=== PATIENT | female | born 1990 | race Caucasian/White ===

== ENCOUNTER 2016-07-30 10:52 | Emergency (ER) | payer BC, OTHER ==
[2016-07-30 11:06] VITALS: TEMP 98; BMI 37.8
[2016-07-30] MEDS ORDERED: ONDANSETRON 4 MG/2 ML VIAL ONE (12:20)
[2016-07-30 13:31] LABS: BASOPHIL 1.3 % (0-2.0); EOSINOPHIL 0.7 % (0-4.5); MCH 31.6 pg (25.7-33.7); MCHC 33.4 g/dl (32.0-36.0); MEAN CELL VOLUME 94.7 fl (80-96); MEAN PLT VOLUME 9.3 fl (7.5-11.1); NEUTROPHILS 60.9 % (42.8-82.8); PLATELET COUNT 215 K/MM3 (134-434); RDW 14.6 % (11.6-15.6); WHITE BLOOD COUNT 8.6 K/mm3 (4.0-10.0)
--- NOTE | 2016-07-30 14:04 | PDOC ---
History of Present Illness - General History Source: Old Records Exam Limitations: No Limitations - History of Present Illness Initial Comments: 07/30/16 14:51 The patient is a 26-year-old female with a significant past medical history of mild mental retardation, cardiomyopathy/bradycardia (s/p pacemaker placed at [facility] in April 2014), bipolar disorder, schizophrenia, and seizure disorder, who presents to the ER with chest pain that began last night at 8PM. The patient describes her chest pain as constant, [id number], 5/10 in severity, and exacerbated with deep inspiration. She reports that she has not seen her Corporate Secretary since June. The patient denies any swelling in legs. The patient denies any pain in arm, jaw, neck, or back. <Suzy Lucas - Last Filed: 07/30/16 14:50> - General History Source: Patient Exam Limitations: No Limitations <Ana Paula Brito - Last Filed: 08/03/16 09:37> - General Chief Complaint: Chest Pain Stated Complaint: CHEST PAIN Time Seen by Provider: 07/30/16 12:07 Past History <Suzy Lucas - Last Filed: 07/30/16 14:50> - Past Medical History Cardiac Disorders: Yes Psychiatric Problems: Yes (bipolar,schizophrenia, takes meds) Suicide Attempt (Hx): No Seizures: Yes - Surgical History Cardiac Surgery: Yes (pacemaker) - Immunization History Immunization Up to Date: Yes - Psycho/Social/Smoking Cessation Hx Anxiety: Yes Suicidal Ideation: No Smoking Status: No Smoking History: Never smoked Have you smoked in the past 12 months: No Number of Cigarettes Smoked Daily: 0 Information on smoking cessation initiated: No Hx Alcohol Use: No Drug/Substance Use Hx: No Substance Use Type: None <Ana Paula Brito - Last Filed: 08/03/16 09:37> - Past Medical History Allergies/Adverse Reactions: Allergies Allergy/AdvReac Type Severity Reaction Status Date / Time No Known Allergies Allergy Verified 07/30/16 11:00 Home Medications: Ambulatory Orders Citalopram Hydrobromide [CeleXA] 20 mg PO HS 08/04/11 Aspirin [ASA -] 81 mg PO DAILY 10/07/14 Metoprolol Tartrate [Lopressor -] 25 mg PO BID 10/07/14 Olanzapine 2.5 mg PO HS 10/07/14 Topiramate [Topamax] 50 mg PO BID #60 tablet 10/07/14 Review of Systems - Review of Systems Able to Perform ROS?: Yes Comments:: 07/30/16 14:51 GENERAL/CONSTITUTIONAL: No: fever, chills, weakness, loss of appetite. HEAD, EYES, EARS, NOSE AND THROAT: No: change in vision, ear pain, discharge, sore throat, throat swelling. CARDIOVASCULAR: No: lightheadedness, palpitations, syncope. (+)Chest pain RESPIRATORY: No: cough, shortness of breath, wheezing, hemoptysis, stridor. GASTROINTESTINAL: No: nausea, vomiting, abdominal cramping, diarrhea, rectal bleeding, constipation. GENITOURINARY: No: dysuria, hematuria, frequency, urgency, flank pain. MUSCULOSKELETAL: No: back pain, neck pain, joint pain, muscle swelling or pain SKIN AND BREASTS: No: lesions, pallor, rash or easy bruising. NEUROLOGIC: No: headache, vertigo, paresthesias, weakness ENDOCRINE: No: unexplained weight gain or loss HEMATOLOGIC/LYMPHATIC: No: anemia, easy bleeding, swelling nodes <Suzy Lucas - Last Filed: 07/30/16 14:50> *Physical Exam - Vital Signs Last Vital Signs Temp Pulse Resp BP Pulse Ox 98.0 F 95 H 18 123/81 100 07/30/16 11:01 07/30/16 11:01 07/30/16 11:01 07/30/16 11:01 07/30/16 11:01 - Physical Exam Comments: 07/30/16 14:52 GENERAL: The patient is in no acute distress. HEAD: Normal with no signs of trauma. EYES: PERRLA, EOMI, sclera anicteric, conjunctiva clear. ENT: Ears normal, nares patent, oropharynx clear without exudates. Moist mucous membranes. NECK: Normal range of motion, supple without lymphadenopathy, JVD, or masses. LUNGS: Breath sounds equal, clear to auscultation bilaterally. No wheezes, and no crackles. HEART:Regular rate and rhythm, normal S1 and S2 without murmur, rub or gallop. ABDOMEN: Soft, nontender, normoactive bowel sounds. No guarding, no rebound. EXTREMITIES: Normal range of motion, no edema. No clubbing or cyanosis. No erythema, or tenderness. NEUROLOGICAL: Cranial nerves II through XII grossly intact. Normal speech. No focal neurological deficits. MUSCULOSKELETAL: Back non-tender to palpation, no CVA tenderness SKIN: Warm, Dry, normal turgor, no rashes or lesions noted. <Suzy Lucas - Last Filed: 07/30/16 14:50> - Vital Signs Last Vital Signs Temp Pulse Resp BP Pulse Ox 98.0 F 95 H 18 123/81 100 07/30/16 11:01 07/30/16 11:01 07/30/16 11:01 07/30/16 11:01 07/30/16 11:01 <Ana Paula Brito - Last Filed: 08/03/16 09:37> Heart Score/ECG Review #1 ECG reviewed & interpreted by me at: 14:49 General ECG Interpretation: Sinus Rhythm, Normal Rate, Normal Intervals, No acute ischemic changes <Ana Paula Brito - Last Filed: 08/03/16 09:37> ED Treatment Course - LABORATORY CBC & Chemistry Diagram: 07/30/16 12:55 07/30/16 12:55 - ADDITIONAL ORDERS Additional order review: Laboratory Results 07/30/16 07/30/16 13:18 12:55 Sodium 140 Potassium 4.4 Chloride 108 H Carbon Dioxide 22 Anion Gap 10 BUN 7 D Creatinine 0.6 Creat Clearance w eGFR > 60 Random Glucose 88 Calcium 8.4 L Total Bilirubin 0.4 AST 34 D ALT 25 Alkaline Phosphatase 85 Creatine Kinase 95 Troponin I < 0.02 Total Protein 7.2 Albumin 3.3 L Serum , Qual Negative 07/30/16 12:55 RBC 4.20 MCV 94.7 MCHC 33.4 RDW 14.6 MPV 9.3 Neutrophils % 60.9 Lymphocytes % 27.1 D Monocytes % 10.0 Eosinophils % 0.7 Basophils % 1.3 <Suzy Lucas - Last Filed: 07/30/16 14:50> - LABORATORY CBC & Chemistry Diagram: 07/30/16 12:55 07/30/16 12:55 - ADDITIONAL ORDERS Additional order review: Laboratory Results 07/30/16 13:18 Serum , Qual Negative 07/30/16 12:55 RBC 4.20 MCV 94.7 MCHC 33.4 RDW 14.6 MPV 9.3 Neutrophils % 60.9 Lymphocytes % 27.1 D Monocytes % 10.0 Eosinophils % 0.7 Basophils % 1.3 - RADIOLOGY Radiology Studies Ordered: Category Date Time Status CHEST X-RAY PORTABLE* [RAD] Stat Radiology 07/30/16 12:35 Ordered <Ana Paula Brito - Last Filed: 08/03/16 09:37> Medical Decision Making - Medical Decision Making 07/30/16 14:04 A portion of this note was documented by scribe services under my direction. I have reviewed the details of the note, within reason, and agree with the documentation with the following case summary and management plan written by me. Nursing documentation reviewed and incorporated into medical decision making 07/30/16 14:34 this is a 26 yo F with a history of syncope found to have sinus pauses, s/p pacemaker (placed 2013) (Pt also has a history of a brief episode of Afib, not anticoagulated, matilde 2 Vasc score 2) Pt presents to the ER with a complaint of left chest pain No cough No shortness of breath no fevers or chills No exertional symptoms Pt has not followed up with her fork lift truck operator as she was told to Will do basic labs will do EKG 07/30/16 14:45 Laboratory Tests 07/30/16 07/30/16 12:55 12:55 WBC 8.6 Hgb 13.3 Hct 39.8 Plt Count 215 Neutrophils % 60.9 Lymphocytes % 27.1 D Sodium 140 Potassium 4.4 Chloride 108 H Carbon Dioxide 22 Anion Gap 10 BUN 7 D Creatinine 0.6 Random Glucose 88 Creatine Kinase 95 Troponin I < 0.[address] Dominique He agrees with discharge to home I have contacted pt mother She is requesting Medicaid cab clinical impression: chest pain <Ana Paula Brito - Last Filed: 08/03/16 09:37> *DC/Admit/Observation/Transfer - Attestations Scribe Attestion: 07/30/16 14:52 Documentation prepared by Suzy Lucas, acting as medical field representative for Ana Paula Brito MD. <Suzy Lucas - Last Filed: 07/30/16 14:50> - Discharge Dispostion Admit: No <Ana Paula Brito - Last Filed: 08/03/16 09:37> Diagnosis at time of Disposition: Chest pain Qualifiers: Chest pain type: unspecified Qualified Code(s): R07.9 - Chest pain, unspecified - Discharge Dispostion Disposition: HOME Condition at time of disposition: Improved - Referrals Referrals: Clif Gomes MD [Primary Care Provider] - - Patient Instructions Printed Discharge Instructions: DI for Atypical Chest Pain
[2016-07-30 14:05] LABS: ALBUMIN 3.3 g/dl (3.4-5.0); ANION GAP 10 (8-16); CALCIUM 8.4 mg/dL (8.5-10.1); CO2 22 mmol/L (21-32); CREATININE 0.6 mg/dL (0.55-1.02); GLUCOSE,RANDOM 88 mg/dL (74-106); SGPT/ALT 25 U/L (12-78)
[2016-07-30 14:09] LABS: ALK PHOS 85 U/L (45-117); BILIRUBIN,TOTAL 0.4 mg/dL (0.2-1.0); TOT PROT 7.2 g/dl (6.4-8.2); TROPONIN I < 0.02 ng/ml (0.00-0.05)
[2016-07-30 14:10] LABS: SGOT/AST 34 U/L (15-37)
[2016-07-30 14:54] VITALS: BP 138/88; PULSE 80
--- NOTE | 2016-07-31 16:30 | EKG ---
Test Reason : Blood Pressure : / mmHG Vent. Rate : 095 BPM Atrial Rate : 095 BPM P-R Int : 120 ms QRS Dur : 076 ms QT Int : 350 ms P-R-T Axes : 043 039 032 degrees QTc Int : 439 ms NORMAL SINUS RHYTHM NORMAL ECG WHEN COMPARED WITH ECG OF 12-JUN-2016 11:44, NO SIGNIFICANT CHANGE WAS FOUND Confirmed by MAXINE DINH MD ([id number]) on 07/31/2016 4:30:37 PM Referred By: Confirmed By:MAXINE DINH MD
== END 2016-07-30 15:19 | disposition home or self-care (01) ==
LOC: JER 10:52
DX: R07.9 Chest pain, unspecified (principal); F79 Unspecified intellectual disabilities; F31.9 Bipolar disorder, unspecified; I42.9 Cardiomyopathy, unspecified; R00.1 Bradycardia, unspecified; Z95.0 Presence of cardiac pacemaker; Z79.82 Long term (current) use of aspirin
CPT/HCPCS: 36415; 71010-TC; 80053; 82550; 84484; 84703; 85025; 93005; 93010; 99284-25

== ENCOUNTER 2016-10-08 13:40 | Emergency (ER) | payer BC, OTHER ==
[2016-10-08 13:48] VITALS: BP 140/55; PULSE 105; TEMP 98.3; BMI 27.1
[2016-10-08] MEDS ORDERED: IBUPROFEN 400 MG TABLET (FP) PO ONE ×2 (14:28→14:31)
[2016-10-08] MEDS ORDERED: AMOXICILLIN 500 MG CAPSULE (FP) PO ONE (14:28)
[2016-10-08] MEDS ORDERED: AMOXICILLIN 250 MG CAPSULE ONE (14:31)
--- NOTE | 2016-10-08 14:31 | PDOC ---
History of Present Illness - General Chief Complaint: Toothache Stated Complaint: toothache Time Seen by Provider: 10/08/16 14:18 History Source: Patient Exam Limitations: No Limitations - History of Present Illness Initial Comments: 10/08/16 14:32 Patient well-known to this emergency department for multiple admissions primarily for psychiatric purposes, is here now complaining of right lower molar pain. Has known dental disease, has not sought evaluation by dentist, denies fever but states is painful. Is uncertain as to when lost the filling or when tooth cracked. Severity: mild Associated Symptoms: reports: denies symptoms, headaches, loss of appetite, malaise. denies: cough, fever/chills Past History - Travel Traveled outside of the country in the last 30 days: No Close contact w/someone who was outside of country & ill: No - Past Medical History Allergies/Adverse Reactions: Allergies Allergy/AdvReac Type Severity Reaction Status Date / Time No Known Allergies Allergy Verified 10/08/16 13:48 Home Medications: Ambulatory Orders Citalopram Hydrobromide [CeleXA] 20 mg PO HS 08/04/11 Aspirin [ASA -] 81 mg PO DAILY 10/07/14 Metoprolol Tartrate [Lopressor -] 25 mg PO BID 10/07/14 Olanzapine 2.5 mg PO HS 10/07/14 Topiramate [Topamax] 50 mg PO BID #60 tablet 10/07/14 Amoxicillin - [Amoxicillin 500mg Capsule -] 500 mg PO TID #21 capsule 10/08/16 Ibuprofen [Motrin -] 400 mg PO QID PRN #28 tablet 10/08/16 Cardiac Disorders: Yes Psychiatric Problems: Yes (bipolar,schizophrenia, takes meds) Suicide Attempt (Hx): No Seizures: Yes - Surgical History Cardiac Surgery: Yes (pacemaker) - Immunization History Immunization Up to Date: Yes - Psycho/Social/Smoking Cessation Hx Anxiety: Yes Suicidal Ideation: No Smoking Status: No Smoking History: Never smoked Have you smoked in the past 12 months: No Number of Cigarettes Smoked Daily: 0 Information on smoking cessation initiated: No Hx Alcohol Use: No Drug/Substance Use Hx: No Substance Use Type: None Review of Systems - Review of Systems Able to Perform ROS?: Yes Is the patient limited Vietnamese proficient: Yes Constitutional: Yes: Symptoms Reported, See HPI, Malaise. No: Fever HEENTM: Yes: Symptoms Reported, See HPI, Nose Congestion, Mouth Pain, Dental Problems Respiratory: Yes: See HPI. No: Symptoms reported, Cough ABD/GI: No: Symptoms Reported All Other Systems: Reviewed and Negative *Physical Exam - Vital Signs Last Vital Signs Temp Pulse Resp BP Pulse Ox 98.3 F 105 H 18 140/55 98 10/08/16 13:47 10/08/16 13:47 10/08/16 13:47 10/08/16 13:47 10/08/16 13:47 - Physical Exam General Appearance: Yes: Appropriately Dressed, Apparent Distress HEENT: positive: HARDIK, TMs Normal, Pharynx Normal, Other (right lower second molar with partial filling loss/cracked. No gingival abscess, no tenderness and gum border, no facial swelling.). negative: Nasal Congestion Neck: positive: Tender, Supple. negative: Lymphadenopathy (R), Lymphadenopathy (L) Respiratory/Chest: positive: Lungs Clear, Normal Breath Sounds Extremity: positive: Normal Capillary Refill, Normal Inspection Integumentary: positive: Normal Color, Dry, Warm Neurologic: positive: tobacco stripper hand II-XII NML intact, Fully Oriented, Alert, Normal Mood/ Affect, Normal Response, Motor Strength 5/5 *DC/Admit/Observation/Transfer Diagnosis at time of Disposition: Toothache - Discharge Dispostion Disposition: HOME Condition at time of disposition: Stable Admit: No - Prescriptions Prescriptions: Amoxicillin - [Amoxicillin 500mg Capsule -] 500 mg PO TID #21 capsule Ibuprofen [Motrin -] 400 mg PO QID PRN #28 tablet PRN Reason: Pain - Patient Instructions Printed Discharge Instructions: DI for Tooth Decay Additional Instructions: Rest, drink lots of fluids: Teas, water, soups Saltwater gargles/ keep mouth clean and rinse after each meal May use wet teabag for pain relief to area Avoid hard chewing foods, stick to ice cream, Jell-O, yogurt etc. Tylenol or Motrin for fever and pain Amoxicillin 500 mg tablet 3 times a day for one week Complete all medication as prescribed Seek dental appointment as soon as possible for evaluation of dental injury/pain Followup with private physician in one to 2 days as needed Return to emergency department for worsened symptoms, fevers, swelling to face or worsened pain
== END 2016-10-08 15:09 | disposition home or self-care (01) ==
LOC: JERFT 13:40
DX: K08.89 Other specified disorders of teeth and supporting structures (principal); I51.9 Heart disease, unspecified; Z95.0 Presence of cardiac pacemaker
CPT/HCPCS: 99281-25

== ENCOUNTER 2017-10-01 19:27 | Emergency (ER) | payer BC, OTHER ==
--- NOTE | 2017-10-01 19:39 | PDOC ---
History of Present Illness - General History Source: Patient, EMS Exam Limitations: No Limitations - History of Present Illness Initial Comments: 10/02/17 01:18 Best Contact:[phone] Pmhx: Seizures, bipolar, schizophrenia, unk cardiac condition Pshx: 2014: Pacemaker Allergies: NKDA LMP: now 27-year-old female presents to the emergency department complaining of suicidal ideation, depression 3 days. Patient states while on a city bus [place] approximately 10 AM today, she had a seizure lasting for approximately 10 seconds. Patient states she did not have a postictal stage and instead walked off the bus immediately after her seizure. She denies headache, dizziness, lightheadedness, facial pains, neck pain/stiffness, back pains, chest pain, shortness of breath, abdominal pains, flank pains, urinary symptoms, extremity numbness or tingling sensation. Patient states she has no medical complaints except that she's been extremely upset and depressed because she met a gentleman on a dating appetite who keeps insisting for her to send him money. Patient states she had an argument with him at approximately 9:30 AM causing her to be extremely upset. Patient states she is on Keppra 750 mg twice a day and has been compliant. Patient states her neurologist/Dr. Zamora will change her From medication to lamotrigine on October 07, 2017. Patient states her last seizure was one year ago. <Bernice Jordan - Last Filed: 10/02/17 07:01> <Salome Dominguez - Last Filed: 10/02/17 12:31> - General Chief Complaint: Seizure Stated Complaint: SEIZURE Time Seen by Provider: 10/01/17 19:31 Past History - Past Medical History Cardiac Disorders: Yes COPD: No HTN: Yes Psychiatric Problems: Yes (bipolar,schizophrenia, takes meds) Seizures: Yes - Surgical History Cardiac Surgery: Yes (pacemaker) - Immunization History Immunization Up to Date: Yes - Suicide/Smoking/Psychosocial Hx Smoking Status: No Smoking History: Never smoked Have you smoked in the past 12 months: No Number of Cigarettes Smoked Daily: 0 Information on smoking cessation initiated: No Hx Alcohol Use: No Drug/Substance Use Hx: No Substance Use Type: None <Bernice Jordan - Last Filed: 10/02/17 07:01> <Salome Dominguez - Last Filed: 10/02/17 12:31> - Past Medical History Allergies/Adverse Reactions: Allergies Allergy/AdvReac Type Severity Reaction Status Date / Time No Known Allergies Allergy Verified 10/01/17 19:36 Home Medications: Ambulatory Orders levETIRAcetam [Keppra -] 750 mg PO BID #14 tablet 05/27/17 Lamotrigine [Lamotrigine ([place])] 1 each PO BID 10/01/17 Olanzapine 2.5 mg PO HS 10/01/17 Venlafaxine HCl ER [Effexor Xr -] 75 mg PO DAILY 10/01/17 Zonisamide 100 mg PO BID 10/01/17 Review of Systems - Review of Systems Able to Perform ROS?: Yes Comments:: 10/02/17 01:22 CONSTITUTIONAL: Absent: fever, chills, diaphoresis, generalized weakness, malaise, loss of appetite HEENT: Absent: rhinorrhea, nasal congestion, throat pain, throat swelling, difficulty swallowing, mouth swelling, ear pain, eye pain, visual Changes CARDIOVASCULAR: Absent: chest pain, loss of consciousness, palpitations, irregular heart rate, peripheral edema RESPIRATORY: Absent: cough, shortness of breath, dyspnea with exertion, orthopnea, wheezing, stridor, hemoptysis GASTROINTESTINAL: Absent: abdominal pain, abdominal distension, nausea, vomiting, diarrhea, constipation, melena, hematochezia GENITOURINARY: Absent: dysuria, frequency, urgency, hesitancy, hematuria, flank pain, genital pain MUSCULOSKELETAL: Absent: myalgia, arthralgia, joint swelling SKIN: Absent: rash, itching, pallor HEMATOLOGIC/IMMUNOLOGIC: Absent: easy bleeding, easy bruising, lymphadenopathy, frequent infections ENDOCRINE: Absent: unexplained weight gain, unexplained weight loss, heat intolerance, cold intolerance NEUROLOGIC: Absent: headache, focal weakness or paresthesias, dizziness, unsteady gait, seizure, mental status changes, bladder or bowel incontinence PSYCHIATRIC: Absent: anxiety, depression, suicidal or homicidal ideation, hallucinations. Is the patient limited Croatian proficient: No <Bernice Jordan - Last Filed: 10/02/17 07:01> *Physical Exam - Vital Signs Last Vital Signs Temp Pulse Resp BP Pulse Ox 98.1 F 101 H 20 135/80 100 10/01/17 19:36 10/01/17 19:36 10/01/17 19:36 10/01/17 19:36 10/01/17 19:36 - Physical Exam Comments: 10/02/17 01:22 GENERAL: Well developed, well nourished. Awake and alert. No acute distress. HEENT: Normocephalic, atraumatic. PERRLA, EOMI. No conjunctival pallor. Sclera are non- icteric. Moist mucous membranes. Oropharynx is clear. NECK: Supple. Full ROM. No JVD. Carotid pulses 2+ and symmetric, without bruits. No thyromegaly. No lymphadenopathy. CARDIOVASCULAR: Regular rate and rhythm. No murmurs, rubs, or gallops. Distal pulses are 2+ and symmetric. PULMONARY: No evidence of respiratory distress. Lungs clear to auscultation bilaterally. No wheezing, rales or rhonchi. ABDOMINAL: Soft. Non-tender. Non-distended. No rebound or guarding. No organomegaly. Normoactive bowel sounds. MUSCULOSKELETAL Normal range of motion at all joints. No bony deformities or tenderness. No CVA tenderness. EXTREMITIES: No cyanosis. No clubbing. No edema. No calf tenderness. SKIN: Warm and dry. Normal capillary refill. No rashes. No jaundice. NEUROLOGICAL: Alert, awake, appropriate. Cranial nerves 2-12 intact. No deficits to light touch and temperature in face, upper extremities and lower extremities. No motor deficits in the in face, upper extremities and lower extremities. Normoreflexic in the upper and lower extremities. Normal speech. Toes are down- going bilaterally. Gait is normal without ataxia. PSYCHIATRIC: Cooperative. Good eye contact. Appropriate mood and affect. <Bernice Jordan - Last Filed: 10/02/17 07:01> - Vital Signs Last Vital Signs Temp Pulse Resp BP Pulse Ox 98.3 F 100 H 18 119/72 100 10/02/17 05:58 10/02/17 07:47 10/02/17 07:47 10/02/17 07:47 10/02/17 07:47 <Salome Dominguez - Last Filed: 10/02/17 12:31> ED Treatment Course - LABORATORY CBC & Chemistry Diagram: 10/01/17 20:19 10/01/17 20:19 <Bernice Jordan - Last Filed: 10/02/17 07:01> - LABORATORY CBC & Chemistry Diagram: 10/01/17 20:19 10/01/17 20:19 - ADDITIONAL ORDERS Additional order review: Laboratory Results 10/01/17 23:40 Urine Color Yellow Urine Appearance Slcloudy Urine pH 5.0 Ur Specific [place] 1.029 Urine Protein 1+ H Urine Glucose (UA) Negative Urine Ketones Trace H Urine Blood 3+ H Urine Nitrite Negative Urine Bilirubin Negative Urine Urobilinogen Negative Ur Leukocyte Esterase Negative Urine WBC (Auto) 15 Urine RBC (Auto) 140 Ur Epithelial Cells Rare Urine Bacteria Rare Urine Mucus Many Urine HCG, Qual Negative 10/01/17 20:19 RBC 4.21 MCV 82.3 MCHC 33.3 RDW 16.9 H D MPV 8.7 Neutrophils % 63.5 Lymphocytes % 22.8 D Monocytes % 10.8 H Eosinophils % 2.7 D Basophils % 0.2 - Medications Given in the ED: ED Medications Discontinued Medications Generic Name Dose Route Start Last Admin Trade Name Freq PRN Reason Stop Dose Admin Sodium Chloride 1,000 mls @ 1,000 mls/hr 10/01/17 19:42 10/01/17 19:49 Normal Saline - IV 10/01/17 20:41 1,000 mls/hr ASDIR STA Administration <Salome Dominguez - Last Filed: 10/02/17 12:31> *DC/Admit/Observation/Transfer - Discharge Dispostion Admit: Yes <Bernice Jordan - Last Filed: 10/02/17 07:01> - Discharge Dispostion Admit: No <Salome Dominguez - Last Filed: 10/02/17 12:31> Diagnosis at time of Disposition: Suicidal ideation Depression Qualifiers: Depression Type: unspecified Qualified Code(s): F32.9 - Major depressive disorder, single episode, unspecified - Discharge Dispostion Disposition: HOME Condition at time of disposition: Stable - Referrals Referrals: Deloris Rodríguez MD [Staff Physician] - - Patient Instructions Printed Discharge Instructions: DI for Suicidal Ideation-Adult Additional Instructions: You were seen by psychiatry today for your depression. Please follow-up with Dr. Rodríguez as an outpatient. Resume all of your home medications as normal. Return to the emergency department if you have lightheadedness, dizziness, suicidal ideations, homicidal ideations, hallucinations, or have any changes in your symptoms. Progress Note - Progress Note Progress Note: 2030hrs: Pt expressed suicidal ideation 2030hrs: Called Dr. Zamora/neurologist 2037hrs: Called and left message for psychiatry melon packer/DR. Catalan 215hrs: Called Dr. Zamora 0202hrs: Hospitalist/Graciela Singh notified on ED obs short stay 0320hrs: called Dr. Rodríguez 0628hrs; Called Dr. Rodríguez 0700hrs: Signed out to VALENTINA Dominguez <Bernice Jordan - Last Filed: 10/02/17 07:01> - Progress Note Progress Note: 10/02/17 07:00 Sign out received from VALENTINA Jordan. Pt. is pending consult from Dr. Rodríguez. Was told he would be in in the morning to evaluate. 10/02/17 10:00 Sesar has not been in to evaluate pt. Will call at this time; Call to sesar 10:02; left message 10/02/17 10:36 Second call to Sesar, 10:36 10/02/17 11:20 Third call to Sesar 11:20 10/02/17 12:21 Dr. Rodríguez evaluated pt, states she may go home. Will d.c home at this time. Consult note written. Pt understands all d.c instructions and all questions were answered. <Salome Dominguez - Last Filed: 10/02/17 12:31>
[2017-10-01 19:41] VITALS: BMI 26.5
[2017-10-01] MEDS ORDERED: SODIUM CHLORIDE 1,000 ML IV STA (19:42)
--- NOTE | 2017-10-01 20:15 | PDOC ---
*Physical Exam - Vital Signs Last Vital Signs Temp Pulse Resp BP Pulse Ox 98.1 F 101 H 20 135/80 100 10/01/17 19:36 10/01/17 19:36 10/01/17 19:36 10/01/17 19:36 10/01/17 19:36 - Physical Exam Comments: 10/01/17 20:15 The patient was examined by [VALENTINA BARRIOS] under my direct supervision. I personally evaluated the patient. I concur with the above findings and the plan of care. ED Treatment Course - LABORATORY CBC & Chemistry Diagram: 10/01/17 20:19 10/01/17 20:19 *DC/Admit/Observation/Transfer Diagnosis at time of Disposition: Depression, Suicidal ideation - Discharge Dispostion Disposition: HOME Condition at time of disposition: Stable - Referrals Referrals: Deloris Rodríguez MD [Staff Physician] - - Patient Instructions Printed Discharge Instructions: DI for Suicidal Ideation-Adult Additional Instructions: You were seen by psychiatry today for your depression. Please follow-up with Dr. Rodríguez as an outpatient. Resume all of your home medications as normal. Return to the emergency department if you have lightheadedness, dizziness, suicidal ideations, homicidal ideations, hallucinations, or have any changes in your symptoms. - Post Discharge Activity
[2017-10-01 20:25] LABS: BASO % 0.2 % (0-2.0); EOS % 2.7 % (0-4.5); HEMATOCRIT 34.6 % (32.4-45.2); HEMOGLOBIN 11.5 GM/dL (10.7-15.3); LYMPH % 22.8 % (8-40); MCH 27.4 pg (25.7-33.7); MCHC 33.3 g/dl (32.0-36.0); MEAN CELL VOLUME 82.3 fl (80-96); MEAN PLT VOLUME 8.7 fl (7.5-11.1); MONO % 10.8 % (3.8-10.2); NEUT % 63.5 % (42.8-82.8); PLATELET COUNT 232 K/MM3 (134-434); RBC 4.21 M/mm3 (3.60-5.2); RDW 16.9 % (11.6-15.6); WHITE BLOOD COUNT 3.6 K/mm3 (4.0-10.0)
[2017-10-01 21:01] LABS: ANION GAP 7 (8-16); BILIRUBIN,TOTAL 0.3 mg/dL (0.2-1.0); BLOOD UREA NITROGEN 8 mg/dL (7-18); CALCIUM 8.6 mg/dL (8.5-10.1); CHLORIDE 109 mmol/L (98-107); CO2 23 mmol/L (21-32); CREATININE 0.8 mg/dL (0.55-1.02); GLUCOSE,RANDOM 82 mg/dL (74-106); POTASSIUM 3.6 mmol/L (3.5-5.1); SGOT/AST 12 U/L (15-37); SGPT/ALT 15 U/L (12-78); SODIUM 139 mmol/L (136-145); TOT PROT 7.9 g/dl (6.4-8.2)
[2017-10-01 21:02] LABS: ALK PHOS 94 U/L (45-117)
[2017-10-01 23:42] LABS: HCG,QUALITATIVE URINE NEGATIVE
[2017-10-01 23:44] LABS: URINE APPEARANCE SLCLOUDY; URINE BILIRUBIN NEGATIVE (NEGATIVE); URINE BLOOD 3+ (NEGATIVE); URINE COLOR YELLOW; URINE GLUCOSE (UA) NEGATIVE (NEGATIVE); URINE KETONE TRACE (NEGATIVE); URINE LEUK ESTERASE NEGATIVE (NEGATIVE); URINE NITRITE NEGATIVE (NEGATIVE); URINE PROTEIN 1+ (NEGATIVE); URINE UROBILINOGEN NEGATIVE mg/dL (0.2-1.0)
[2017-10-01 23:46] LABS: EPI CELLS RARE /HPF (FEW); URINE BACTERIA RARE /hpf (NONE SEEN); URINE MUCUS MANY
[2017-10-02 06:43] VITALS: TEMP 98.3
[2017-10-02 11:15] VITALS: BP 129/81; PULSE 96
--- NOTE | 2017-10-02 12:06 | CON.PSY ---
Psychiatry Consult Chief Complaint: I called the ambulance because I was not feeling well> I dont feel suiocvidal, I was upset because I gave a kim $200. I am upset. I dont want to kiill bentleyf. Symptoms: reports: Depressed Mood - Previous Psychiatric Treatment Outpatient: None Inpatient: None - Previous Substance Abuse Treatment Outpatient: None Inpatient: None - Allergies Allergies: Allergies Allergy/AdvReac Type Severity Reaction Status Date / Time No Known Allergies Allergy Verified 10/01/17 19:36 - Current Living Status Usual Living Arrangement: With Parent - Current Mental Status Evaluation Appearance: Well Groomed Attitude: Cooperative - Affect Affect: Labile - Mood Mood: Euthymic - Speech/Language Expressive: Coherent - Psychomotor Activity Psychomotor Activity: Hyperactive - Thought Process Thought Process: Intact - Thought Content Hallucinations: Absent Delusions: Absent - Self Perception Self Perception: No Impairment - Cognition Attention: Alert Orientation: Time Memory, Immediate Recall: Intact Memory, Short Term: 2/3 Memory, Remote with Promptin/3 - Concentration Serial Sevens Intact: No Simple Calculations Intact: No - Abstraction Proverb Interpretation: Intact Judgement: Minimally Impaired - Insight Insight: Intact - Impulse Control Impulse Control: Minimally Impaired - Suicidal Ideation Suicidal Ideation: No - Homicidal Ideation Homicidal Ideation: No Assessment/Plan 1) Patient is not suicvidal at this time/. 2) Discjharge home. 3) No need for psych follow up.
--- NOTE | 2017-10-05 01:09 | EKG ---
Test Reason : Blood Pressure : / mmHG Vent. Rate : 083 BPM Atrial Rate : 083 BPM P-R Int : 122 ms QRS Dur : 084 ms QT Int : 350 ms P-R-T Axes : 050 055 041 degrees QTc Int : 411 ms NORMAL SINUS RHYTHM NORMAL ECG WHEN COMPARED WITH ECG OF 30-JUL-2016 11:04, NO SIGNIFICANT CHANGE WAS FOUND Confirmed by STEFAN LOVE MD ([id number]) on 10/05/2017 1:09:37 AM Referred By: Confirmed By:STEFAN LOVE MD
== END 2017-10-02 12:37 | disposition home or self-care (01) ==
LOC: JER 19:27 → JERBED 10-02 03:39 → UNDOADMOB 10-02 03:39 → JER 10-02 12:37
PROC: 3E0337Z Introduction of Electrolytic and Water Balance Substance into Peripheral Vein, Percutaneous Approach (ICD-10-PCS; principal; 2017-10-01)
DX: F32.9 Major depressive disorder, single episode, unspecified (principal); G40.909 Epilepsy, unspecified, not intractable, without status epilepticus; F25.9 Schizoaffective disorder, unspecified; F31.9 Bipolar disorder, unspecified
CPT/HCPCS: 36415; 80053; 81003; 81015; 84703; 85025; 93005; 93010; 99284-25; J7030

== ENCOUNTER 2017-10-04 09:28 | Observation (INO) | payer BC, OTHER ==
[2017-10-04 10:05] VITALS: BMI 29.2
--- NOTE | 2017-10-04 10:24 | PDOC ---
History of Present Illness - General History Source: Patient Exam Limitations: No Limitations - History of Present Illness Initial Comments: 10/04/17 11:08 The patient is a 27-year-old female with a significant past medical history of bipolar disorder, schizophrenia, cardiomyopathy (s/p pacemaker 2013), and seizure disorder, who presents to the emergency department with itchy rash since 3 days ago. She states the rash started on her forearms, and spread throughout her body during the day. As per mother, the patient was on Keppra but was recently transitioned to Lamictal 1.5 weeks ago by neurologist. However , mother states the rash started 1 week after that transition began. Mother states the patient stopped taking Lamictal yesterday as they were concerned about the rash. The patient denies any changes in diet or behavior. The patient denies chest pain, shortness of breath, headache and dizziness. The patient denies chills, cough, nausea, vomit, diarrhea and constipation. The patient denies dysuria, frequency, urgency and hematuria. Allergies: NKDA <Lauren Pablo - Last Filed: 10/04/17 11:08> <Vanessa Eden - Last Filed: 10/04/17 17:24> - General Stated Complaint: ALLERGIC REACTION Time Seen by Provider: 10/04/17 10:15 Past History <Lauren Pablo - Last Filed: 10/04/17 11:08> - Past Medical History Cardiac Disorders: Yes COPD: No HTN: Yes Psychiatric Problems: Yes (bipolar,schizophrenia, takes meds) Seizures: Yes - Surgical History Cardiac Surgery: Yes (pacemaker) - Immunization History Immunization Up to Date: Yes - Suicide/Smoking/Psychosocial Hx Smoking Status: No Smoking History: Never smoked Have you smoked in the past 12 months: No Number of Cigarettes Smoked Daily: 0 Hx Alcohol Use: No Drug/Substance Use Hx: No Substance Use Type: None <Vanessa Eden - Last Filed: 10/04/17 17:24> - Past Medical History Allergies/Adverse Reactions: Allergies Allergy/AdvReac Type Severity Reaction Status Date / Time No Known Allergies Allergy Verified 10/01/17 19:36 Home Medications: Ambulatory Orders levETIRAcetam [Keppra -] 750 mg PO BID #14 tablet 05/27/17 Olanzapine 2.5 mg PO HS 10/01/17 Venlafaxine HCl ER [Effexor Xr -] 75 mg PO DAILY 10/01/17 Zonisamide 100 mg PO BID 10/01/17 Lamotrigine [LaMICtal -] 1 tab PO BID 10/04/17 Review of Systems - Review of Systems Able to Perform ROS?: Yes Comments:: 10/04/17 11:10 GENERAL/CONSTITUTIONAL: No fever or chills. No weakness. HEAD, EYES, EARS, NOSE AND THROAT: No change in vision. No ear pain or discharge. No sore throat. CARDIOVASCULAR: No chest pain or shortness of breath. RESPIRATORY: No cough, wheezing, or hemoptysis. GASTROINTESTINAL: No nausea, vomiting, diarrhea or constipation. GENITOURINARY: No dysuria, frequency, or change in urination. MUSCULOSKELETAL: No joint or muscle swelling or pain. No neck or back pain. SKIN: (+) Pruritic rash NEUROLOGIC: No headache, vertigo, loss of consciousness, or change in strength/ sensation. ENDOCRINE: No increased thirst. No abnormal weight change. HEMATOLOGIC/LYMPHATIC: No anemia, easy bleeding, or history of blood clots. ALLERGIC/IMMUNOLOGIC: No hives or skin allergy. <Lauren Pablo - Last Filed: 10/04/17 11:08> *Physical Exam - Vital Signs Last Vital Signs Temp Pulse Resp BP Pulse Ox 100.6 F H 126 H 16 110/68 98 10/04/17 09:50 10/04/17 09:50 10/04/17 09:50 10/04/17 09:50 10/04/17 09:50 <Lauren Pablo - Last Filed: 10/04/17 11:08> - Vital Signs Last Vital Signs Temp Pulse Resp BP Pulse Ox 100.6 F H 126 H 16 110/68 98 10/04/17 09:50 10/04/17 09:50 10/04/17 09:50 10/04/17 09:50 10/04/17 09:50 - Physical Exam Comments: GENERAL: Awake, alert, and fully oriented, in no acute distress HEAD: No signs of trauma EYES: PERRLA, EOMI, sclera anicteric, conjunctiva clear ENT: Auricles normal inspection, hearing grossly normal, nares patent, oropharynx clear without exudates. Moist mucosa. No mucosal lesions. NECK: Normal ROM, supple, no lymphadenopathy, JVD, or masses LUNGS: Breath sounds equal, clear to auscultation bilaterally. No wheezes, and no crackles HEART: Tachycardic with regular rhythm, normal S1 and S2, no murmurs, rubs or gallops ABDOMEN: Soft, nontender, normoactive bowel sounds. No guarding, no rebound. No masses EXTREMITIES: Normal range of motion, no edema. No clubbing or cyanosis. No cords, erythema, or tenderness NEUROLOGICAL: Cranial nerves II through XII grossly intact. Normal speech, normal gait SKIN: Warm, Dry, normal turgor. +Diffuse erythematous papular rash with excoriations, sparing palms and soles. <Vanessa Eden - Last Filed: 10/04/17 17:24> ED Treatment Course - LABORATORY CBC & Chemistry Diagram: 10/04/17 11:15 10/04/17 11:59 <Vanessa Eden - Last Filed: 10/04/17 17:24> Medical Decision Making - Medical Decision Making 10/04/17 15:11 Case d/w Dr. Fournier. Rash appears to be a drug rash, however, the fever and tachycardia are concerning. There are no mucosal lesions or sloughing of the skin to indicate SJS or TEN. The fever may be due to the UTI, but it is not definite. Will place on observation. <Vanessa Eden - Last Filed: 10/04/17 17:24> *DC/Admit/Observation/Transfer - Attestations Scribe Attestion: 10/04/17 11:10 Documentation prepared by Lauren Pablo, acting as medical practice administrator for Vanessa Eden MD, /DO. <Lauren Pablo - Last Filed: 10/04/17 11:08> - Discharge Dispostion Admit: Yes <Vanessa Eden - Last Filed: 10/04/17 17:24> Diagnosis at time of Disposition: Rash UTI (urinary tract infection) Qualifiers: Urinary tract infection type: site unspecified Hematuria presence: without hematuria Qualified Code(s): N39.0 - Urinary tract infection, site not specified - Discharge Dispostion Condition at time of disposition: Stable
[2017-10-04 11:37] LABS: LYMPH % 27.5 % (8-40); MCH 26.6 pg (25.7-33.7); MEAN PLT VOLUME 8.9 fl (7.5-11.1)
[2017-10-04 11:45] LABS: BASO % 0.5 % (0-2.0); EOS % 4.2 % (0-4.5); HEMATOCRIT 35.2 % (32.4-45.2); HEMOGLOBIN 11.6 GM/dL (10.7-15.3); MCHC 32.9 g/dl (32.0-36.0); MONO % 8.1 % (3.8-10.2); NEUT % 59.7 % (42.8-82.8); PLATELET COUNT 141 K/MM3 (134-434); RBC 4.34 M/mm3 (3.60-5.2); RDW 16.6 % (11.6-15.6); WHITE BLOOD COUNT 2.8 K/mm3 (4.0-10.0)
[2017-10-04 12:16] LABS: ALBUMIN 3.7 g/dl (3.4-5.0); ALK PHOS 77 U/L (45-117); ANION GAP 7 (8-16); BILIRUBIN,TOTAL 0.2 mg/dL (0.2-1.0); BLOOD UREA NITROGEN 11 mg/dL (7-18); CALCIUM 8.1 mg/dL (8.5-10.1); CHLORIDE 107 mmol/L (98-107); CO2 23 mmol/L (21-32); GLUCOSE,RANDOM 82 mg/dL (74-106); POTASSIUM 4.2 mmol/L (3.5-5.1); SGOT/AST 72 U/L (15-37); SGPT/ALT 75 U/L (12-78); SODIUM 137 mmol/L (136-145); TOT PROT 7.3 g/dl (6.4-8.2)
[2017-10-04] MEDS ORDERED: ACETAMINOPHEN 325 MG TABLET (FP) PO ONE (13:22)
[2017-10-04] MEDS ORDERED: ACETAMINOPHEN 325 MG TABLET (FP) ONE (13:26)
[2017-10-04 14:02] LABS: URINE APPEARANCE SLCLOUDY; URINE BILIRUBIN NEGATIVE (NEGATIVE); URINE BLOOD 3+ (NEGATIVE); URINE COLOR DKYELLOW; URINE GLUCOSE (UA) NEGATIVE (NEGATIVE); URINE KETONE TRACE (NEGATIVE); URINE NITRITE NEGATIVE (NEGATIVE)
[2017-10-04 14:15] LABS: URINE LEUK ESTERASE 2+ (NEGATIVE); URINE PROTEIN 2+ (NEGATIVE)
[2017-10-04 14:17] LABS: EPI CELLS FEW /HPF (FEW); URINE MUCUS MANY
[2017-10-04] MEDS ORDERED: CEFTRIAXONE 1 GM in DEXTROSE 5%-WATER - 50 ML IVPB ONE (15:04)
[2017-10-04] MEDS ORDERED: CEFTRIAXONE 1 GM/50 ML BAG ONE (15:12)
--- NOTE | 2017-10-04 15:16 | HP ---
CHIEF COMPLAINT: Rash Broadcast Engineer: Dr. Marinelli, [facility] Neurologist: Dr. Jamil HISTORY OF PRESENT ILLNESS: 27 year-old female with a PMH significant for developmental delay, bipolar/ schizophrenic disorder, seizure disorder, and cardiomyopathy s/p PPM (2014). Patient was seen overnight in ED 10/01-10/02 for symptoms of anxiety and depression. Seen by psych and released. Patient did not have a rash at that time. Later in the day of 10/02, patient started to develop a developed a macular rash on her arms. The rash progressed and on 10/03 she went to see her neurologist who stopped Lamictal. Lamictal had first been prescribed 11 days ago. The rash continued to spread. Patient was brought to the ED today by her mother. She has an extensive pruritic macular rash across chest, abdomen, back, bilateral upper thighs. She is febrile to 100.6. ER course was notable for: (1) Benadryl 25mg IVPB x 1 (2) ceftriaxone 1g x 1 Recent Travel: No PAST MEDICAL HISTORY: Developmental delay Bipolar/schizophrenic disorder Seizure disorder Cardiomyopathy PAST SURGICAL HISTORY: Permanent pacemaker Social History: Smoking: no Alcohol: no Drugs: no Family History: Allergies No Known Allergies Allergy (Verified 10/01/17 19:36) HOME MEDICATIONS: Current Medications Generic Name Dose Route Start Last Admin Trade Name Freq PRN Reason Stop Dose Admin Levetiracetam 750 mg 10/04/17 22:00 Keppra - PO BID DEIRDRE Olanzapine 2.5 mg 10/04/17 22:00 Zyprexa - PO HS DEIRDRE Venlafaxine HCl 75 mg 10/05/17 10:00 Effexor Xr - PO DAILY DEIRDRE Zonisamide 100 mg 10/04/17 22:00 Zonegran - PO BID DEIRDRE REVIEW OF SYSTEMS CONSTITUTIONAL: Absent: fever, chills, diaphoresis, generalized weakness, malaise, loss of appetite, weight change HEENT: Absent: rhinorrhea, nasal congestion, throat pain, throat swelling, difficulty swallowing, mouth swelling, ear pain, eye pain, visual changes CARDIOVASCULAR: Absent: chest pain, syncope, palpitations, irregular heart rate, lightheadedness , peripheral edema RESPIRATORY: Absent: cough, shortness of breath, dyspnea with exertion, orthopnea, wheezing, stridor, hemoptysis GASTROINTESTINAL: Absent: abdominal pain, abdominal distension, nausea, vomiting, diarrhea, constipation, melena, hematochezia GENITOURINARY: Absent: dysuria, frequency, urgency, hesitancy, hematuria, flank pain, genital pain MUSCULOSKELETAL: Absent: myalgia, arthralgia, joint swelling, back pain, neck pain SKIN: +pruritic rash Absent: rash, itching, pallor HEMATOLOGIC/IMMUNOLOGIC: Absent: easy bleeding, easy bruising, lymphadenopathy, frequent infections ENDOCRINE: Absent: unexplained weight gain, unexplained weight loss, heat intolerance, cold intolerance NEUROLOGIC: Absent: headache, focal weakness or paresthesias, dizziness, unsteady gait, seizure, mental status changes, bladder or bowel incontinence PSYCHIATRIC: Absent: anxiety, depression, suicidal or homicidal ideation, hallucinations. PHYSICAL EXAMINATION Vital Signs - 24 hr 10/04/17 10/04/17 09:50 12:56 Temperature 100.6 F H 100.4 F H Pulse Rate 126 H Pulse Rate [ 76 Right Radial] Respiratory 16 18 Rate Blood Pressure 110/68 Blood Pressure 110/57 [Right Arm] O2 Sat by Pulse 98 96 Oximetry (%) GENERAL: Awake, alert, and fully oriented, in no acute distress. Some relief from itching with benadry. HEAD: Normal with no signs of trauma. EYES: Pupils equal, round and reactive to light, extraocular movements intact, sclera anicteric, conjunctiva clear. No lid lag. EARS, NOSE, THROAT: Ears normal, nares patent, oropharynx clear without exudates. Moist mucous membranes. NECK: Normal range of motion, supple without lymphadenopathy, JVD, or masses. LUNGS: Breath sounds equal, clear to auscultation bilaterally. No wheezes, and no crackles. No accessory muscle use. HEART: Regular rate and rhythm, normal S1 and S2 without murmur, rub or gallop. ABDOMEN: Soft, nontender, not distended, normoactive bowel sounds, no guarding, no rebound, no masses. No hepatomegaly or splenomegaly. MUSCULOSKELETAL: Normal range of motion at all joints. No bony deformities or tenderness. No CVA tenderness. UPPER EXTREMITIES: 2+ pulses, warm, well-perfused. No cyanosis. No clubbing. No peripheral edema. LOWER EXTREMITIES: 2+ pulses, warm, well-perfused. No calf tenderness. No peripheral edema. NEUROLOGICAL: Cranial nerves II-XII intact. Normal speech. Normal gait. PSYCHIATRIC: Cooperative. Good eye contact. Appropriate mood and affect. SKIN: Cystic acne on face; macular rash across chest, back, abdomen, upper thighs, pruritic Laboratory Results - last 24 hr 10/04/17 10/04/17 10/04/17 11:15 11:15 11:15 WBC 2.8 L RBC 4.34 Hgb 11.6 Hct 35.2 MCV 81.0 MCH 26.6 MCHC 32.9 RDW 16.6 H Plt Count 141 D MPV 8.9 Neutrophils % 59.7 Lymphocytes % 27.5 D Monocytes % 8.1 Eosinophils % 4.2 Basophils % 0.5 Sodium Potassium Chloride Carbon Dioxide Anion Gap BUN Creatinine Creat Clearance w eGFR Random Glucose Lactic Acid 1.1 Calcium Total Bilirubin AST ALT Alkaline Phosphatase Total Protein Albumin Serum , Qual Negative Urine Color Urine Appearance Urine pH Ur Specific [place] Urine Protein Urine Glucose (UA) Urine Ketones Urine Blood Urine Nitrite Urine Bilirubin Urine Urobilinogen Ur Leukocyte Esterase Urine WBC (Auto) Urine RBC (Auto) Ur Epithelial Cells Urine Mucus 10/04/17 10/04/17 11:59 13:50 WBC RBC Hgb Hct MCV MCH MCHC RDW Plt Count MPV Neutrophils % Lymphocytes % Monocytes % Eosinophils % Basophils % Sodium 137 Potassium 4.2 Chloride 107 Carbon Dioxide 23 Anion Gap 7 L BUN 11 Creatinine 1.0 Creat Clearance w eGFR > 60 Random Glucose 82 Lactic Acid Calcium 8.1 L Total Bilirubin 0.2 D AST 72 H ALT 75 Alkaline Phosphatase 77 Total Protein 7.3 Albumin 3.7 Serum , Qual Urine Color Dkyellow Urine Appearance Slcloudy Urine pH 5.0 Ur Specific [place] 1.030 Urine Protein 2+ H Urine Glucose (UA) Negative Urine Ketones Trace H Urine Blood 3+ H Urine Nitrite Negative Urine Bilirubin Negative Urine Urobilinogen 2.0 H Ur Leukocyte Esterase 2+ H Urine WBC (Auto) 37 Urine RBC (Auto) 8 Ur Epithelial Cells Few Urine Mucus Many ASSESSMENT/PLAN 27 year-old female with a PMH significant for developmental delay, bipolar/ schizophrenic disorder, seizure disorder, and cardiomyopathy s/p PPM (2014). Placed on observation for likely drug rash. ER course was notable for: (1) Benadryl 25mg IVPB x 1 (2) ceftriaxone 1g x 1 Drug rash --last dose Lamictal 11 days ago --no other change in medications --will start short course of low dose PO prednisone --Pepcid IVPB 20mg x 2 doses --benadryl PRN UTI Pyuria --continue ceftriaxone --culture pending Dispo: continues to require observation Visit type - Emergency Visit Emergency Visit: Yes ED Registration Date: 10/04/17 Care time: The patient presented to the Emergency Department on the above date and was hospitalized for further evaluation of their emergent condition. - New Patient This patient is new to me today: Yes Date on this admission: 10/04/17 - Critical Care Critical Care patient: No Hospitalist Screening - Colonoscopy Questionnaire Colonoscopy Questionnaire: Colonoscopy Questionnaire - Patient: 50 - 75 years old and never had a screening colonoscopy: No History of colon or rectal polyps, or CA: No History of IBD, Crohn's disease or UC: No History of abdominal radiation therapy as a child: No - Relative: 1 with colon or rectal CA, or polyps at age 60 or younger: Unknown Colon or rectal CA diagnosed at age 45 or younger: Unknown Multiple relatives with colon or rectal CA: Unknown - Outcome: Screening Result: Negative Screen
--- NOTE | 2017-10-04 16:28 | EKG ---
Test Reason : Blood Pressure : / mmHG Vent. Rate : 106 BPM Atrial Rate : 106 BPM P-R Int : 120 ms QRS Dur : 084 ms QT Int : 320 ms P-R-T Axes : 052 054 036 degrees QTc Int : 425 ms SINUS TACHYCARDIA OTHERWISE NORMAL ECG WHEN COMPARED WITH ECG OF 01-OCT-2017 21:36, NO SIGNIFICANT CHANGE WAS FOUND Confirmed by Romel Herman ([id number]) on 10/04/2017 4:28:15 PM Referred By: Confirmed By:Romel Herman
--- NOTE | 2017-10-04 17:14 | PN ---
Progress Note (short form) - Note Progress Note: ID consult dictated asked to see for fever and rash history of seizures and PPM she was not aware she had a fever seen in ED Tuesday night for suicidal ideation- developed rash after d/c home on Tuesday she went to see her neurologist with rash on Tuesday and her lamictal was stopped last dose Tuesday night she was started on lamictal 11 days ago with plans to taper her Keppra no other new meds mother brought her to ED because she noted the rash was worse today no bullous lesions no lesions in mouth no conjunctivitis she is itchy rash first started on her arms no rash on her face (has acne) no cough no fevers or chills at home here in ED with temp 100.6 a/p Drug rash most likely due to lamictal- agree with d/c lamictal she is uncomfortable and would benefit from short course of po prednisone continue benadryl prn as well UTI- she has history of utis in the past none recently continue ceftriaxone d/w hospitalist Problem List - Problems (1) Rash Code(s): R21 - RASH AND OTHER NONSPECIFIC SKIN ERUPTION (2) UTI (urinary tract infection) Code(s): N39.0 - URINARY TRACT INFECTION, SITE NOT SPECIFIED Qualifiers: Urinary tract infection type: site unspecified Hematuria presence: without hematuria Qualified Code(s): N39.0 - Urinary tract infection, site not specified
--- NOTE | 2017-10-04 18:14 | CONS ---
DATE OF CONSULTATION: DATE OF DICTATION: 10/04/2017 INFECTIOUS DISEASE CONSULTATION REQUESTING PHYSICIAN: The hospitalist service CONSULTING PHYSICIAN: Moise Lovelace M.D. HISTORY OF PRESENT ILLNESS: This is a 27-year-old woman with past medical history of seizure disorder and cardiomyopathy status post pacemaker 2013. She presents to the emergency room with an itchy rash that started on Tuesday night. She was actually in the ER Tuesday night into Tuesday with suicidal ideation and was discharged home. That night her mom noted an itchy rash on her arm. The next day the rash had progressed. She took her to see her neurologist who had just prescribed Lamictal which she was now on day 11. The Lamictal was stopped; her last dose was Tuesday. The rash continued to be itchy and seemed to progress today and the mom brought her to the emergency room. She denies any chest pain, shortness of breath. She has no cough, chills, nausea, vomiting, diarrhea, or dysuria. She has no headache. She is not short of breath. She has no difficulty swallowing. She has no known drug allergies. PAST MEDICAL HISTORY: Notable for bipolar disorder, schizophrenia, cardiomyopathy status post pacemaker 2013 and seizure disorder. MEDICATION: Her medications as an outpatient include Keppra, olanzapine, venlafaxine, , and Lamictal. The newest medication is the Lamictal which was started 11 days ago. FAMILY HISTORY: Noncontributory. SOCIAL HISTORY: There is no history of cigarette or substance use. She lives with her mother. Currently she is not attending any school or any program. They have 2 little pet dogs at home. REVIEW OF SYSTEMS: As per HPI. She has no difficulty swallowing. She has no wheezing. She received some Benadryl and is feeling a little bit better. PHYSICAL EXAMINATION: Vital signs: Her T-max is 100.6, pulse of 108, blood pressure she is saturating 98% on room air. HEENT: Normocephalic. Eyes are anicteric. Neck: Supple. She has no thrush or pharyngitis. She has no oral lesions. Lungs: Clear to auscultation. Heart: Regular rate and rhythm. She has a pacemaker scar in her left chest wall with a large keloid. Abdomen: Soft, nontender. Extremities: Without edema. Skin: Notable for, she has acneform change in her face; this her mother reports is chronic. She has no conjunctivitis. She has no oral lesions. She has a diffuse maculopapular rash primarily on her arms, itchy diffusely on her back and abdomen as well as her upper legs with some scattered lesions on her lower legs. LABORATORY: Notable for a white count of 2.8, hemoglobin 11.6, platelets of 141, BUN and creatinine are 11 and 1. test is negative. Urinalysis has 2+ leukocytes with 37 white cells. Urine culture is pending. Flu swab is negative, and blood cultures have been sent. She received a dose of ceftriaxone in the emergency room. IMPRESSION: 1. In summary, this is a 27-year-old woman with a rash most likely drug rash due to Lamictal. I agree with stopping the Lamictal. She is uncomfortable land would most likely benefit from a short dose of oral prednisone. Would continue Benadryl p.r.n. as well. 2. Urinary tract infection. She has a history of urinary tract infections in the past, none recently, would continue ceftriaxone at this time. Awaiting cultures. Further recommendations to follow. The case was discussed with the hospitalist and with her mother at the bedside. MOISE LOVELACE M.D. [id number]
[2017-10-04] MEDS ORDERED: predniSONE 20 MG TABLET (UD) PO ONE (19:40)
[2017-10-04] MEDS: FAMOTIDINE IV 20 MG/12 ML VIAL IVPUSH SCH (20:30)
[2017-10-04] MEDS: ZONISAMIDE 100 MG CAPSULE PO SCH (22:18)
[2017-10-04] MEDS: levETIRAcetam 500 MG TABLET (FP) PO SCH (22:19)
[2017-10-04] MEDS: ACETAMINOPHEN 325 MG TABLET (FP) PO PRN (22:19)
[2017-10-04] MEDS: OLANZapine 2.5 MG TABLET PO SCH (22:20)
[2017-10-05 08:00] LABS: BASO % 0.8 % (0-2.0); EOS % 0.6 % (0-4.5); HEMATOCRIT 33.5 % (32.4-45.2); HEMOGLOBIN 11.2 GM/dL (10.7-15.3); LYMPH % 24.8 % (8-40); MCH 26.9 pg (25.7-33.7); MCHC 33.4 g/dl (32.0-36.0); MEAN CELL VOLUME 80.4 fl (80-96); MEAN PLT VOLUME 8.5 fl (7.5-11.1); MONO % 4.2 % (3.8-10.2); NEUT % 69.6 % (42.8-82.8); PLATELET COUNT 136 K/MM3 (134-434); RBC 4.16 M/mm3 (3.60-5.2); RDW 16.8 % (11.6-15.6)
[2017-10-05 08:03] LABS: WHITE BLOOD COUNT 1.8 K/mm3 (4.0-10.0)
[2017-10-05 08:38] LABS: CHLORIDE 106 mmol/L (98-107); POTASSIUM 3.6 mmol/L (3.5-5.1); SODIUM 139 mmol/L (136-145)
[2017-10-05 08:55] LABS: ALBUMIN 3.4 g/dl (3.4-5.0); ALK PHOS 72 U/L (45-117); ANION GAP 12 (8-16); BILIRUBIN,TOTAL 0.3 mg/dL (0.2-1.0); BLOOD UREA NITROGEN 13 mg/dL (7-18); CALCIUM 8.5 mg/dL (8.5-10.1); CO2 21 mmol/L (21-32); CREATININE 0.7 mg/dL (0.55-1.02); GLUCOSE,RANDOM 106 mg/dL (74-106); MAGNESIUM 2.4 mg/dL (1.8-2.4); PHOSPHOROUS 3.8 mg/dL (2.5-4.9); SGOT/AST 86 U/L (15-37); SGPT/ALT 99 U/L (12-78); TOT PROT 7.2 g/dl (6.4-8.2)
--- NOTE | 2017-10-05 09:30 | PN ---
Progress Note, Physician Chief Complaint: Clinical improvement NO fever - Current Medication List Current Medications: Active Medications Acetaminophen (Tylenol -) 650 mg PO Q6H PRN PRN Reason: fever Last Admin: 10/04/17 22:19 Dose: 650 mg Diphenhydramine HCl (Benadryl Injection -) 25 mg IVPB Q6H PRN PRN Reason: FOR ITCHING Levetiracetam (Keppra -) 750 mg PO BID [facility] Last Admin: 10/04/17 22:19 Dose: 750 mg Olanzapine (Zyprexa -) 2.5 mg PO HS [facility] Last Admin: 10/04/17 22:20 Dose: 2.5 mg Prednisone (Deltasone -) 20 mg PO ONCE ONE Stop: 10/05/17 14:01 Venlafaxine HCl (Effexor Xr -) 75 mg PO DAILY [facility] Zonisamide (Zonegran -) 100 mg PO BID [facility] Last Admin: 10/04/17 22:18 Dose: 100 mg - Objective Vital Signs: Vital Signs Temperature 98.4 F 10/05/17 06:00 Pulse Rate 87 10/05/17 06:00 Respiratory Rate 20 10/05/17 06:00 Blood Pressure 100/63 10/05/17 06:00 O2 Sat by Pulse Oximetry (%) 98 10/04/17 21:30 Constitutional: Yes: Well Nourished, No Distress HENT: Yes: WNL, Atraumatic Neck: Yes: WNL, Supple Cardiovascular: Yes: S1, S2 Respiratory: Yes: WNL, Regular, CTA Bilaterally Gastrointestinal: Yes: Soft. No: Tenderness Integumentary: Yes: Other (MOstly facial rash but diffuse legs abd) Labs: CBC, BMP 10/05/17 07:40 10/05/17 07:40 Assessment/Plan Microbiology 10/04/17 13:50 Urine - Urine Clean Catch Urine Culture - Preliminary Laboratory Tests 10/04/17 10/04/17 10/05/17 11:15 13:50 07:40 WBC 2.8 L 1.8 L* D Hgb 11.2 Hct 33.5 Plt Count 136 BUN Creatinine Total Bilirubin ALT Urine Urobilinogen 2.0 H Urine RBC (Auto) 8 10/05/17 07:40 WBC Hgb Hct Plt Count BUN 13 Creatinine 0.7 Total Bilirubin 0.3 D ALT 99 H Urine Urobilinogen Urine RBC (Auto) Assessment Drug reaction Lamictal fever rash pancytopenia Plan Taper po prednisone over a week Could consider discharge on steroid with outpt follow up with CBC diff Would get monospot KALLI though both seem unlikely here Sravani HARDING
[2017-10-05] MEDS ORDERED: predniSONE 20 MG TABLET (UD) PO SCH (10:00)
[2017-10-05] MEDS ORDERED: PT OWN MED DRAWER 7, Y5N ONE ×2 (10:26→10:33)
[2017-10-05] MEDS: levETIRAcetam 500 MG TABLET (FP) PO SCH ×2 (10:28→21:58)
--- NOTE | 2017-10-05 12:07 | PN ---
Physical Exam: SUBJECTIVE: Patient seen and examined oob to chair. Rash improved, less itchy. OBJECTIVE: Vital Signs Period Temp Pulse Resp BP Sys/Puckett Pulse Ox Last 24 Hr 97.9 F-102.1 F 76-122 18-20 100-140/57-89 96-98 GENERAL: The patient is awake, alert, and fully oriented, in no acute distress. LUNGS: CTA HEART: Regular rate and rhythm, S1, S2 without murmur, rub or gallop. ABDOMEN: Soft, nontender, nondistended, normoactive bowel sounds EXTREMITIES: 2+ pulses, warm, well-perfused, no edema. NEUROLOGICAL: Cranial nerves II through XII grossly intact. Normal speech, steady gait SKIN: resolving macular rash across chest, back, abdomen, upper thighs Laboratory Results - last 24 hr 10/04/17 10/04/17 10/04/17 11:15 11:15 11:15 WBC 2.8 L RBC 4.34 Hgb 11.6 Hct 35.2 MCV 81.0 MCH 26.6 MCHC 32.9 RDW 16.6 H Plt Count 141 D MPV 8.9 Neutrophils % 59.7 Lymphocytes % 27.5 D Monocytes % 8.1 Eosinophils % 4.2 Basophils % 0.5 Sodium Potassium Chloride Carbon Dioxide Anion Gap BUN Creatinine Creat Clearance w eGFR Random Glucose Lactic Acid 1.1 Calcium Phosphorus Magnesium Total Bilirubin AST ALT Alkaline Phosphatase C-Reactive Protein Total Protein Albumin Serum , Qual Negative Urine Color Urine Appearance Urine pH Ur Specific Rillito Urine Protein Urine Glucose (UA) Urine Ketones Urine Blood Urine Nitrite Urine Bilirubin Urine Urobilinogen Ur Leukocyte Esterase Urine WBC (Auto) Urine RBC (Auto) Ur Epithelial Cells Urine Mucus 10/04/17 10/04/17 10/05/17 11:59 13:50 07:40 WBC 1.8 L* D RBC 4.16 Hgb 11.2 Hct 33.5 MCV 80.4 MCH 26.9 MCHC 33.4 RDW 16.8 H Plt Count 136 MPV 8.5 Neutrophils % 69.6 Lymphocytes % 24.8 Monocytes % 4.2 Eosinophils % 0.6 D Basophils % 0.8 Sodium 137 Potassium 4.2 Chloride 107 Carbon Dioxide 23 Anion Gap 7 L BUN 11 Creatinine 1.0 Creat Clearance w eGFR > 60 Random Glucose 82 Lactic Acid Calcium 8.1 L Phosphorus Magnesium Total Bilirubin 0.2 D AST 72 H ALT 75 Alkaline Phosphatase 77 C-Reactive Protein Total Protein 7.3 Albumin 3.7 Serum , Qual Urine Color Dkyellow Urine Appearance Slcloudy Urine pH 5.0 Ur Specific Rillito 1.030 Urine Protein 2+ H Urine Glucose (UA) Negative Urine Ketones Trace H Urine Blood 3+ H Urine Nitrite Negative Urine Bilirubin Negative Urine Urobilinogen 2.0 H Ur Leukocyte Esterase 2+ H Urine WBC (Auto) 37 Urine RBC (Auto) 8 Ur Epithelial Cells Few Urine Mucus Many 10/05/17 07:40 WBC RBC Hgb Hct MCV MCH MCHC RDW Plt Count MPV Neutrophils % Lymphocytes % Monocytes % Eosinophils % Basophils % Sodium 139 Potassium 3.6 Chloride 106 Carbon Dioxide 21 Anion Gap 12 BUN 13 Creatinine 0.7 Creat Clearance w eGFR > 60 Random Glucose 106 Lactic Acid Calcium 8.5 Phosphorus 3.8 Magnesium 2.4 Total Bilirubin 0.3 D AST 86 H ALT 99 H Alkaline Phosphatase 72 C-Reactive Protein 1.6 H Total Protein 7.2 Albumin 3.4 Serum , Qual Urine Color Urine Appearance Urine pH Ur Specific Rillito Urine Protein Urine Glucose (UA) Urine Ketones Urine Blood Urine Nitrite Urine Bilirubin Urine Urobilinogen Ur Leukocyte Esterase Urine WBC (Auto) Urine RBC (Auto) Ur Epithelial Cells Urine Mucus Active Medications Generic Name Dose Route Start Last Admin Trade Name Freq PRN Reason Stop Dose Admin Acetaminophen 650 mg 10/04/17 21:43 10/04/17 22:19 Tylenol - PO 650 mg Q6H PRN Administration fever Diphenhydramine HCl 25 mg 10/04/17 19:44 Benadryl Injection - IVPB Q6H PRN FOR ITCHING Levetiracetam 750 mg 10/04/17 22:00 10/05/17 10:28 Keppra - PO 750 mg BID DEIRDRE Administration Olanzapine 2.5 mg 10/04/17 22:00 10/04/17 22:20 Zyprexa - PO 2.5 mg HS DEIRDRE Administration Prednisone 20 mg 10/05/17 14:00 Deltasone - PO 10/05/17 14:01 ONCE ONE Prednisone 40 mg 10/05/17 10:00 Deltasone - PO DAILY DEIRDRE Venlafaxine HCl 75 mg 10/05/17 10:00 Effexor Xr - PO DAILY DEIRDRE Zonisamide 100 mg 10/04/17 22:00 10/04/17 22:18 Zonegran - PO 100 mg BID DEIRDRE Administration ASSESSMENT/PLAN: 27 year-old female with a PMH significant for developmental delay, bipolar/ schizophrenic disorder, seizure disorder, and cardiomyopathy s/p PPM (2014). Placed on observation for drug rash with fever. Drug reaction --fever, elevated transaminases, pancytopenia, all consistent with reaction to Lamictal, last dose 12 days ago --patient appears clinically well, itching has improved, no other complaints --patient refusing prednisone --continue observation Pyuria --hold antibiotics for now --culture pending Visit type - Emergency Visit Emergency Visit: Yes ED Registration Date: 10/04/17 Care time: The patient presented to the Emergency Department on the above date and was hospitalized for further evaluation of their emergent condition. - New Patient This patient is new to me today: No - Critical Care Critical Care patient: No
[2017-10-05] MEDS: VENLAFAXINE HCL 75 MG E.R. CAPSULES (FP) PO SCH (13:08)
[2017-10-05] MEDS: ZONISAMIDE 100 MG CAPSULE PO SCH ×2 (13:09→21:58)
[2017-10-05] MEDS ORDERED: predniSONE 20 MG TABLET (UD) PO ONE (14:00)
[2017-10-05] MEDS: FAMOTIDINE IV 20 MG/12 ML VIAL IVPUSH SCH ×2 (17:55→18:17)
[2017-10-05] MEDS: OLANZapine 2.5 MG TABLET PO SCH (21:58)
[2017-10-06] MEDS: ACETAMINOPHEN 325 MG TABLET (FP) PO PRN (06:17)
[2017-10-06 08:10] LABS: BASO % 0.3 % (0-2.0); EOS % 6.4 % (0-4.5); HEMATOCRIT 33.6 % (32.4-45.2); LYMPH % 25.2 % (8-40); MCH 26.5 pg (25.7-33.7); MCHC 32.7 g/dl (32.0-36.0); MEAN CELL VOLUME 81.2 fl (80-96); MEAN PLT VOLUME 9.5 fl (7.5-11.1); MONO % 6.6 % (3.8-10.2); NEUT % 61.5 % (42.8-82.8); PLATELET COUNT 161 K/MM3 (134-434); RBC 4.14 M/mm3 (3.60-5.2); WHITE BLOOD COUNT 3.5 K/mm3 (4.0-10.0)
[2017-10-06 08:32] LABS: INR 1.13 (0.82-1.09); PROTHROMBIN TIME (PATIENT) 12.8 SEC (9.98-11.88)
[2017-10-06 08:53] LABS: CHLORIDE 107 mmol/L (98-107); POTASSIUM 3.3 mmol/L (3.5-5.1); SODIUM 141 mmol/L (136-145)
[2017-10-06 09:02] LABS: ALBUMIN 3.4 g/dl (3.4-5.0); ALK PHOS 73 U/L (45-117); ANION GAP 11 (8-16); BILIRUBIN,DIRECT < 0.2 mg/dL (0.0-0.2); BILIRUBIN,TOTAL 0.4 mg/dL (0.2-1.0); BLOOD UREA NITROGEN 14 mg/dL (7-18); CO2 23 mmol/L (21-32); CREATININE 0.7 mg/dL (0.55-1.02); GLUCOSE,RANDOM 89 mg/dL (74-106); MAGNESIUM 2.3 mg/dL (1.8-2.4); SGOT/AST 108 U/L (15-37); SGPT/ALT 132 U/L (12-78); TOT PROT 6.7 g/dl (6.4-8.2)
[2017-10-06 10:11] LABS: HEP.C VIRUS AB <0.1 s/co ratio (0.0-0.9)
--- NOTE | 2017-10-06 10:49 | PN ---
Physical Exam: SUBJECTIVE: Patient seen and examined OBJECTIVE: Vital Signs Period Temp Pulse Resp BP Sys/Puckett Pulse Ox Last 24 Hr 98.0 F-102.0 F 96-130 18-20 108-124/53-62 98-98 GENERAL: The patient is awake, alert, and fully oriented, in no acute distress. HEAD: Normal with no signs of trauma. EYES: PERRL, extraocular movements intact, sclera anicteric, conjunctiva clear. No ptosis. ENT: Ears normal, nares patent, oropharynx clear without exudates, moist mucous membranes. NECK: Trachea midline, full range of motion, supple. LUNGS: Breath sounds equal, clear to auscultation bilaterally, no wheezes, no crackles, no accessory muscle use. HEART: Regular rate and rhythm, S1, S2 without murmur, rub or gallop. ABDOMEN: Soft, nontender, nondistended, normoactive bowel sounds, no guarding, no rebound, no hepatosplenomegaly, no masses. EXTREMITIES: 2+ pulses, warm, well-perfused, no edema. NEUROLOGICAL: Cranial nerves II through XII grossly intact. Normal speech, gait not observed. PSYCH: Normal mood, normal affect. SKIN: Warm, dry, normal turgor, no rashes or lesions noted Laboratory Results - last 24 hr 10/05/17 10/05/17 10/05/17 07:40 12:30 14:30 WBC RBC Hgb Hct MCV MCH MCHC RDW Plt Count MPV Neutrophils % Lymphocytes % Monocytes % Eosinophils % Basophils % PT with INR INR Sodium 139 Potassium 3.6 Chloride 106 Carbon Dioxide 21 Anion Gap 12 BUN 13 Creatinine 0.7 Creat Clearance w eGFR > 60 Random Glucose 106 Calcium 8.5 Phosphorus 3.8 Magnesium 2.4 Total Bilirubin 0.3 D Direct Bilirubin AST 86 H ALT 99 H Alkaline Phosphatase 72 C-Reactive Protein 1.6 H Total Protein 7.2 Albumin 3.4 Hepatitis A IgM Ab Negative Hep Bs Antigen Negative Hep B Core IgM Ab Negative Hepatitis C Antibody <0.1 Monoscreen HIV 1&2 Antibody Screen Negative HIV P24 Antigen Negative 10/06/17 10/06/17 10/06/17 06:20 06:20 06:20 WBC 3.5 L D RBC 4.14 Hgb 11.0 Hct 33.6 MCV 81.2 MCH 26.5 MCHC 32.7 RDW 17.0 H Plt Count 161 MPV 9.5 D Neutrophils % 61.5 Lymphocytes % 25.2 Monocytes % 6.6 Eosinophils % 6.4 H D Basophils % 0.3 PT with INR 12.80 H INR 1.13 Sodium Potassium Chloride Carbon Dioxide Anion Gap BUN Creatinine Creat Clearance w eGFR Random Glucose Calcium Phosphorus Magnesium Total Bilirubin Direct Bilirubin AST ALT Alkaline Phosphatase C-Reactive Protein Total Protein Albumin Hepatitis A IgM Ab Hep Bs Antigen Hep B Core IgM Ab Hepatitis C Antibody Monoscreen Negative HIV 1&2 Antibody Screen HIV P24 Antigen 10/06/17 06:20 WBC RBC Hgb Hct MCV MCH MCHC RDW Plt Count MPV Neutrophils % Lymphocytes % Monocytes % Eosinophils % Basophils % PT with INR INR Sodium 141 Potassium 3.3 L Chloride 107 Carbon Dioxide 23 Anion Gap 11 BUN 14 Creatinine 0.7 Creat Clearance w eGFR Random Glucose 89 Calcium 8.0 L Phosphorus Magnesium 2.3 Total Bilirubin 0.4 D Direct Bilirubin < 0.2 AST 108 H ALT 132 H Alkaline Phosphatase 73 C-Reactive Protein Total Protein 6.7 Albumin 3.4 Hepatitis A IgM Ab Hep Bs Antigen Hep B Core IgM Ab Hepatitis C Antibody Monoscreen HIV 1&2 Antibody Screen HIV P24 Antigen Active Medications Generic Name Dose Route Start Last Admin Trade Name Freq PRN Reason Stop Dose Admin Acetaminophen 650 mg 10/04/17 21:43 10/06/17 06:17 Tylenol - PO 650 mg Q6H PRN Administration fever Diphenhydramine HCl 25 mg 10/04/17 19:44 Benadryl Injection - IVPB Q6H PRN FOR ITCHING Levetiracetam 750 mg 10/04/17 22:00 10/05/17 21:58 Keppra - PO 750 mg BID DEIRDRE Administration Olanzapine 2.5 mg 10/04/17 22:00 10/05/17 21:58 Zyprexa - PO 2.5 mg HS DEIRDRE Administration Potassium Chloride 40 meq 10/06/17 10:30 K-Dur - PO 10/06/17 16:31 Q6H DEIRDRE Venlafaxine HCl 75 mg 10/05/17 10:00 10/05/17 13:08 Effexor Xr - PO 75 mg DAILY DEIRDRE Administration Zonisamide 100 mg 10/04/17 22:00 10/05/17 21:58 Zonegran - PO 100 mg BID DEIRDRE Administration ASSESSMENT/PLAN:
--- NOTE | 2017-10-06 11:09 | DS ---
Physical Exam: SUBJECTIVE: Patient seen and examined OBJECTIVE: Vital Signs Period Temp Pulse Resp BP Sys/Puckett Pulse Ox Last 24 Hr 98.0 F-102.0 F 96-130 18-20 108-124/53-62 98-98 PHYSICAL EXAM GENERAL: The patient is awake, alert, and fully oriented, in no acute distress. LUNGS: CTA HEART: Regular rate and rhythm, S1, S2 without murmur, rub or gallop. ABDOMEN: Soft, nontender, nondistended, normoactive bowel sounds EXTREMITIES: 2+ pulses, warm, well-perfused, no edema. NEUROLOGICAL: Cranial nerves II through XII grossly intact. Normal speech, steady gait SKIN: resolving macular rash across chest, back, abdomen, upper thighs LABS Laboratory Results - last 24 hr 10/05/17 10/05/17 10/05/17 07:40 12:30 14:30 WBC RBC Hgb Hct MCV MCH MCHC RDW Plt Count MPV Neutrophils % Lymphocytes % Monocytes % Eosinophils % Basophils % PT with INR INR Sodium 139 Potassium 3.6 Chloride 106 Carbon Dioxide 21 Anion Gap 12 BUN 13 Creatinine 0.7 Creat Clearance w eGFR > 60 Random Glucose 106 Calcium 8.5 Phosphorus 3.8 Magnesium 2.4 Total Bilirubin 0.3 D Direct Bilirubin AST 86 H ALT 99 H Alkaline Phosphatase 72 C-Reactive Protein 1.6 H Total Protein 7.2 Albumin 3.4 Hepatitis A IgM Ab Negative Hep Bs Antigen Negative Hep B Core IgM Ab Negative Hepatitis C Antibody <0.1 Monoscreen HIV 1&2 Antibody Screen Negative HIV P24 Antigen Negative 10/06/17 10/06/17 10/06/17 06:20 06:20 06:20 WBC 3.5 L D RBC 4.14 Hgb 11.0 Hct 33.6 MCV 81.2 MCH 26.5 MCHC 32.7 RDW 17.0 H Plt Count 161 MPV 9.5 D Neutrophils % 61.5 Lymphocytes % 25.2 Monocytes % 6.6 Eosinophils % 6.4 H D Basophils % 0.3 PT with INR 12.80 H INR 1.13 Sodium Potassium Chloride Carbon Dioxide Anion Gap BUN Creatinine Creat Clearance w eGFR Random Glucose Calcium Phosphorus Magnesium Total Bilirubin Direct Bilirubin AST ALT Alkaline Phosphatase C-Reactive Protein Total Protein Albumin Hepatitis A IgM Ab Hep Bs Antigen Hep B Core IgM Ab Hepatitis C Antibody Monoscreen Negative HIV 1&2 Antibody Screen HIV P24 Antigen 10/06/17 06:20 WBC RBC Hgb Hct MCV MCH MCHC RDW Plt Count MPV Neutrophils % Lymphocytes % Monocytes % Eosinophils % Basophils % PT with INR INR Sodium 141 Potassium 3.3 L Chloride 107 Carbon Dioxide 23 Anion Gap 11 BUN 14 Creatinine 0.7 Creat Clearance w eGFR Random Glucose 89 Calcium 8.0 L Phosphorus Magnesium 2.3 Total Bilirubin 0.4 D Direct Bilirubin < 0.2 AST 108 H ALT 132 H Alkaline Phosphatase 73 C-Reactive Protein Total Protein 6.7 Albumin 3.4 Hepatitis A IgM Ab Hep Bs Antigen Hep B Core IgM Ab Hepatitis C Antibody Monoscreen HIV 1&2 Antibody Screen HIV P24 Antigen HOSPITAL COURSE: Date of Admission:10/04/17 Date of Discharge: 10/06/17 27 year-old female with a PMH significant for developmental delay, bipolar/ schizophrenic disorder, seizure disorder, and cardiomyopathy s/p PPM (2014). Patient was seen overnight in ED 10/01-10/02 for symptoms of anxiety and depression. Seen by psych and released. Patient did not have a rash at that time. Later in the day of 10/02, patient started to develop a developed a macular rash on her arms. The rash progressed and on 10/03 she went to see her neurologist who stopped Lamictal. Lamictal had first been prescribed 11 days ago. The rash continued to spread. Patient was brought to the ED today by her mother. She has an extensive pruritic macular rash across chest, abdomen, back, bilateral upper thighs. She is febrile to 100.6. ER course was notable for: (1) Benadryl 25mg IVPB x 1 (2) ceftriaxone 1g x 1 Drug reaction --fever, elevated transaminases, pancytopenia, and eosinophilia, all consistent with reaction to Lamictal --patient appears clinically well, itching has improved, no other complaints --patient's mother aware, has already spoken to Dr. Jamil, patient's neurologist, who has prescribed a new anti-seizure medication --mother has benadryl at home Pyuria --urine culture negative Minutes to complete discharge: 35 Discharge Summary Reason For Visit: UTI,RASH Current Active Problems Rash (Acute) UTI (urinary tract infection) (Acute) Condition: Improved - Instructions Diet, Activity, Other Instructions: You are allergic to Lamictal. You should never take this medication. If anyone asks you if you are allergic to anything, you should say "Lamictal." Your allergy has been noted in your patient chart here at [facility]. You may take benadryl as needed for itching. Referrals: Rafita Jamil MD [Staff Physician] - 2 Weeks Disposition: HOME - Home Medications Comprehensive Discharge Medication List: Ambulatory Orders levETIRAcetam [Keppra -] 750 mg PO BID #14 tablet 05/27/17 Olanzapine 2.5 mg PO HS 10/01/17 Venlafaxine HCl ER [Effexor Xr -] 75 mg PO DAILY 10/01/17 Zonisamide 100 mg PO BID 10/01/17 Lacosamide [Vimpat -] 100 mg PO DAILY 10/04/17 Lamotrigine [LaMICtal -] 1 tab PO BID 10/04/17 This patient is new to me today: No Emergency Visit: Yes ED Registration Date: 10/04/17 Care time: The patient presented to the Emergency Department on the above date and was hospitalized for further evaluation of their emergent condition. Critical Care patient: No - Discharge Referral Referred to [facility] Med P.C.: No
[2017-10-06] MEDS ORDERED: PT OWN MED DRAWER 7, Y5N ONE (11:12)
[2017-10-06] MEDS: levETIRAcetam 500 MG TABLET (FP) PO SCH (11:17)
[2017-10-06] MEDS: ZONISAMIDE 100 MG CAPSULE PO SCH (11:18)
[2017-10-06] MEDS: VENLAFAXINE HCL 75 MG E.R. CAPSULES (FP) PO SCH (11:18)
[2017-10-06] MEDS: POTASSIUM CHLORIDE TABS 20 MEQ TABLET.ER (FP) PO SCH ×2 (14:17→14:30)
[2017-10-06] MEDS: POTASSIUM CHLORIDE ORAL LIQUID 20 MEQ/15 ML PO ONE ×2 (14:41→14:48)
[2017-10-06 17:08] VITALS: BP 118/68; PULSE 112; TEMP 100.4
== END 2017-10-06 17:02 | disposition home or self-care (01) ==
LOC: JER 09:28 → SUATTDRO 09:28 → JERBED 15:13 → J5S 21:27
PROVIDERS: ADMIT Internal Medicine; ATTEND Nurse Practitioner Acute Care
DX: L27.0 Generalized skin eruption due to drugs and medicaments taken internally (principal); T42.6X5A Adverse effect of other antiepileptic and sedative-hypnotic drugs, initial encounter; N39.0 Urinary tract infection, site not specified; R50.9 Fever, unspecified; R74.0 Nonspecific elevation of levels of transaminase and lactic acid dehydrogenase [LDH]; D61.818 Other pancytopenia; F31.9 Bipolar disorder, unspecified; F20.9 Schizophrenia, unspecified; I42.9 Cardiomyopathy, unspecified; G40.909 Epilepsy, unspecified, not intractable, without status epilepticus; Z95.0 Presence of cardiac pacemaker; Y92.9 Unspecified place or not applicable
CPT/HCPCS: 36415; 71045-TC-FY; 76705-TC; 80048; 80053; 80074; 80076; 81003; 81015; 83605; 83735; 84100; 84703; 85025; 85610; 86038; 86140; 86308; 87040; 87086; 87389; 87804; 93005; 93010; 99285-25; G0378